=== PATIENT | male | born 1970 | race Caucasian/White ===

== ENCOUNTER → 2017-01-29 | Outpatient (CLI) | payer BC, OTHER ==
[~2017-01-29] MED LIST: MULT-506 PO
--- NOTE | 2017-01-29 14:18 | DIAGNOSTIC IMAGING REPORT ---
RIGHT SHOULDER MIN 2 VIEWS CLINICAL HISTORY: Right shoulder pain. No known injury. COMPARISON: None FINDINGS: Alignment of the right shoulder is anatomic. There is no fracture or suspicious lesion. There is moderate acromioclavicular joint arthrosis. IMPRESSION: 1. No acute fracture or dislocation of the right shoulder. 2. Moderate osteoarthritis of the right acromioclavicular joint. Electronically signed by: Andrew Sharma M.D. 01/29/2017 2:16 PM Dictated Date/Time: 01/29/2017 2:15 PM
== END | disposition home or self-care (01) ==
LOC: C.RDSM 13:13
PROVIDERS: ATTEND Family Medicine
DX: M25.511 Pain in right shoulder (principal)

== ENCOUNTER → 2017-05-07 | Outpatient (CLI) | payer BC ==
[~2017-05-07] MED LIST changes: +GADAVIST IV PRN
--- NOTE | 2017-05-08 13:38 | DIAGNOSTIC IMAGING REPORT ---
MRI OF THE BRAIN COMBO INTERNAL AUDITORY CANAL PROTOCOL CLINICAL HISTORY: Tinnitus in the left ear of several years duration. Hearing loss. COMPARISON STUDY: No priors. TECHNIQUE: MRI of the brain was performed utilizing various T1 and T2-weighted sequences in the axial, sagittal, and coronal planes. Contrast-enhanced sequences were acquired following the administration of 8 cc of Gadavist. Additional high-resolution imaging was performed through the skull base both pre and postcontrast for further assessment of the internal auditory canals. FINDINGS: Brain parenchyma: Punctate foci of T2 signal in amount within the frontal white matter are of doubtful significance as an isolated finding. The brain parenchyma is otherwise normal in appearance. There is no hemorrhage or mass effect. There is no restricted diffusion to suggest acute ischemia. No enhancing mass lesion is identified on the postcontrast images. Sterling-white matter differentiation is preserved. No extra-axial fluid collection is seen. The cerebellar tonsils are normal in configuration. Ventricles, sulci, and cisterns: Normal in configuration. Internal auditory canals: There is no mass lesion identified in the cerebellopontine angle bilaterally. No mass lesion or abnormal enhancement is identified along the internal auditory canals. The middle ear structures on the right are normal as visualized. There is a large left mastoid effusion containing T1 and T2 hyperintense debris. This extends into the epitympanic recess. The middle ear structures are otherwise normal in appearance. There is no evidence of enhancing mass lesion. Pituitary and sella: Unremarkable. Intracranial vasculature: Normal flow voids are maintained at the skull base. Orbits: The bony orbits are grossly intact. Orbital contents are normal in appearance. Sinuses and mastoids: The paranasal sinuses are clear. There is a large left mastoid effusion. The right mastoid air cells are clear. Calvarium: Unremarkable. Cervical cord: Partially visualized cervical spinal cord is normal in morphology and signal intensity. IMPRESSION: 1. No acute intracranial abnormality. 2. The internal artery canals are normal in appearance. 3. There is a large complex left mastoid effusion with fluid extending into the epitympanic recess. This represent proteinaceous debris or possibly blood products. Consider follow-up with ENT. Electronically signed by: Declan Gómez M.D. 05/08/2017 1:36 PM Dictated Date/Time: 05/07/2017 9:30 PM
== END | disposition home or self-care (01) ==
LOC: C.MRI 19:35
PROVIDERS: ATTEND Otolaryngology
DX: H74.8X2 Other specified disorders of left middle ear and mastoid (principal); H93.19 Tinnitus, unspecified ear; L30.9 Dermatitis, unspecified